=== PATIENT | female | born 1985 | race Caucasian/White ===

== ENCOUNTER 2016-11-26 07:14 | Day surgery (SDC) | payer BC ==
[~2016-11-26] VITALS: Ht 160 cm; Wt 86.2 kg
[~2016-11-26 07:14] MED LIST: CEFAZOLIN 1 GM IVPB PREMIX 50 ML IV ONE
[2016-11-26 07:31] LABS: HCG,QUAL RESULT NEGATIVE (NEGATIVE)
[2016-11-26] MEDS ORDERED: CEFAZOLIN 1 GM IVPB PREMIX 50 ML IV ONE (07:54)
[2016-11-26] MEDS ORDERED: MIDAZOLAM HCL 5 MG/5 ML VIAL IVP ONE (09:15)
[2016-11-26] MEDS ORDERED: ONDANSETRON HCL 4 MG/2 ML VIAL IVP ONE (09:15)
[2016-11-26] MEDS ORDERED: KETOROLAC TROMETHAMINE 30 MG VIAL IVP ONE (09:15)
[2016-11-26] MEDS ORDERED: ROCURONIUM BROMIDE 10 MG/ML (ZEMURON) IV ONE (09:15)
[2016-11-26] MEDS ORDERED: SEVOFLURANE 15 MIN GAS INH ONE (09:15)
[2016-11-26] MEDS ORDERED: PROPOFOL 200MG/ 20ML VIAL (DIPRIVAN) IV ONE (09:15)
[2016-11-26] MEDS ORDERED: DEXAMETHASONE SOD PHOSPHATE 4 MG/ML VIAL IVP ONE (09:15)
[2016-11-26] MEDS ORDERED: fentaNYL CITRATE 250 MCG/5 ML AMP IV ONE (09:15)
[2016-11-26] MEDS ORDERED: LR 1,000 ML IV SCH (10:10)
[2016-11-26] MEDS ORDERED: HYDROcodone/ACETAMIN 5-325 MG TAB (NORCO/ VICODIN) PO PRN ×2 (10:15)
[2016-11-26] MEDS ORDERED: HYDROmorphone 2 MG/ML VIAL IVP PRN ×2 (10:15)
[2016-11-26] MEDS ORDERED: MEPERIDINE HCL/PF 25 MG/ML DISP.SYRIN IVP PRN (10:15)
[2016-11-26] MEDS ORDERED: HYDROmorphone 1 MG INJ. 1 MG/ML AMPUL IVP PRN ×2 (10:15)
[2016-11-26] MEDS ORDERED: HYDROmorphone 2 MG/ML VIAL ONE (11:05)
[2016-11-26 11:30] VITALS: BP_SYST 101
[2016-11-26] MEDS ORDERED: ONDANSETRON HCL 4 MG/2 ML VIAL IVP PRN (12:15)
[2016-11-26] MEDS ORDERED: ONDANSETRON HCL 4 MG/2 ML VIAL ONE (12:23)
[2016-11-26] MEDS ORDERED: D5/0.45 NS 1,000 ML IV SCH (14:00)
== END 2016-11-26 11:59 | disposition home or self-care (01) ==
LOC: SDS 07:14 → SMU 07:17 → SDS 11:59
PROVIDERS: ATTEND Colon & Rectal Surgery
DX: K61.3 Ischiorectal abscess (principal); K21.9 Gastro-esophageal reflux disease without esophagitis; E66.9 Obesity, unspecified
CPT/HCPCS: 46275; 84703; J0690; J1100; J1170; J1885; J2250; J2405; J2704; J3010; J7120